=== PATIENT | female | born 1975 | race American Indian/Alaskan Native ===

== ENCOUNTER 2017-06-09 10:00 | Outpatient (CLI) | payer OTHER ==
[2017-06-09 10:35] LABS: Hemoglobin 13.4 gm/dl (10.1-14.3); Mean Corpuscular HGB Conc 33 % (30-34); Mean Corpuscular Hemoglobin 29 pg (28-32); Mean Corpuscular Volume 87 fl (79-97); Platelet Count 312 K/mm3 (140-440); Red Blood Count 4.68 M/mm3 (3.65-5.03); Red Cell Distribution Width 13.9 % (13.2-15.2); White Blood Count 3.5 K/mm3 (4.5-11.0)
[2017-06-09 10:45] LABS: INR 0.95 (0.87-1.13)
[2017-06-09 10:46] LABS: Partial Thromboplastin Time 31.4 Sec. (24.2-36.6)
[2017-06-09 11:13] LABS: HIV-1 Antigen p24 Non React (Non React); HIVR-1/2 Ab Non React (Non React)
== END 2017-06-09 10:01 | disposition home or self-care (01) ==
LOC: LAB 10:00
PROVIDERS: ATTEND Internal Medicine
DX: Z01.812 Encounter for preprocedural laboratory examination (principal); R79.89 Other specified abnormal findings of blood chemistry
CPT/HCPCS: 36415; 84443; 85027; 85610; 85730; 86706; 86803; 87806